=== PATIENT | female | born 1990 | race Caucasian/White ===

== ENCOUNTER → 2019-01-24 | Outpatient (CLI) | payer OTHER | LOC: MHCPAIN 09:55 | DX: G89.29 Other chronic pain (principal); M47.817 Spondylosis without myelopathy or radiculopathy, lumbosacral region | CPT/HCPCS: G0463 ==

== ENCOUNTER 2021-07-07 08:42 | Day surgery (SDC) | payer OTHER ==
[~2021-07-07] VITALS: Ht 172.7 cm; Wt 71.0 kg
--- NOTE | 2021-07-07 08:55 | NUR ---
Patient ambualted to [facility] without diffculty. SEE PHYSICAL ASSESSMENT. Call nieves is within reach. Patient voided prior to IV start. Will continue to monitor.
[2021-07-07 09:30] VITALS: BP 121/66; PULSE 74; TEMP 98.6
--- NOTE | 2021-07-07 09:42 | NUR ---
Admissions was called to fix Guarantor address, Aisha said she would fix this information to match the patient information section at the top of the page. Correct address: [address] [place] [address].
[2021-07-07 11:40] VITALS: BP 105/53; PULSE 65; TEMP 97.1
--- NOTE | 2021-07-07 11:40 | NUR ---
Patient arrived on cart from OR escorted by Chantell FRANKLIN. Report obtained. Vitals obtained. Patient denies pain. Patient requested a muffin and diet pepsi. Side rails x2. Call nieves within reach. Will continue to monitor.
[2021-07-07] MEDS ORDERED: COLACE 100100 MG/CAP PO (11:42)
[2021-07-07] MEDS ORDERED: MOTRIN 600600 MG/TAB PO (11:44)
[2021-07-07] MEDS ORDERED: GOOD NEIGH3.4 GM/Dos PO (11:44)
[2021-07-07] MEDS ORDERED: PERCOCET 325 MG1 TA2 PO (11:45)
[2021-07-07 11:55] VITALS: BP 109/50; PULSE 57
--- NOTE | 2021-07-07 11:55 | NUR ---
Patient is tolerating muffin and diet soda well. Denies N/V. Vitals obtained. Patient was assisted with ambulating to bathroom and successfully voided. Vitals obtained. Patient expressed desire to go home. Call nieves at bedside.
--- NOTE | 2021-07-07 12:20 | NUR ---
IV discontinued at this time due to impending discharge. Catheter tip intact. No redness or swelling noted. Pressure bandage applied. Patient said she would begin changing into her personal clothes at this time.
--- NOTE | 2021-07-07 12:45 | NUR ---
Patient was escorted out via wheelchair to [facility] at this time. Patient has her personal belongings and discharge instructions. Patient stated no questions or concerns. Patient was transferred into the care of her friend at this time, who is driving.
== END 2021-07-07 12:45 | disposition home or self-care (01) ==
LOC: SDCO 08:42
DX: K62.89 Other specified diseases of anus and rectum (principal)
CPT/HCPCS: J0690; J2405; J2704; J3010